=== PATIENT | male | born 1980 | race Hispanic/Latino ===

== ENCOUNTER → 2019-07-01 | Outpatient (CLI) | payer BC ==
[~2019-07-01] MED LIST: OMEPRAZOLE40 MG PO
--- NOTE | 2019-07-01 14:05 | Diagnostic Imaging Report ---
Right upper quadrant abdominal ultrasound, 07/01/2019. History: Right upper quadrant pain. Comparison: None available. Discussion: Transverse and longitudinal images of the right upper quadrant of the abdomen were obtained demonstrating a liver of normal size and echogenicity measuring 15 cm in length. There is no evidence of a focal hepatic mass. The portal vein is patent with hepatopetal flow and is within normal limits measuring 11 mm in diameter. The biliary tree is within normal limits with the common bile duct measuring 4 mm in diameter. The gallbladder contains echogenic sludge. No gallstones, pericholecystic fluid, or wall thickening is present. The sonographic Leung's sign was negative. The right kidney is normal in size and echogenicity without evidence of hydronephrosis, stones, or mass and measures 10.1 cm in length. The pancreatic body and proximal tail are visualized and are normal in appearance. The abdominal aorta is within normal limits. There is no evidence of free fluid. IMPRESSION: Gallbladder sludge. No evidence of gallstones or cholecystitis. Signed by: Donny Aponte MD on 07/01/2019 2:02 PM
== END ==
LOC: US 11:04
PROVIDERS: ATTEND Internal Medicine Gastroenterology
DX: R10.10 Upper abdominal pain, unspecified (principal)
CPT/HCPCS: 76705

== ENCOUNTER → 2019-07-06 | Day surgery (SDC) | payer BC ==
[~2019-07-06] MED LIST changes: +FENTANYL CITRATE/PF 100MCG/2 ML INJ ONE; +LIDOCAINE HCL 2% LOCAL INJ 5 ML SDV VIAL INJ ONE; +MIDAZOLAM HCL 2 MG/2 ML VIAL ONE; +PANTOPRAZOLE 40 MG 10ML VIAL ONE; +PROPOFOL IV EMULSION 10 MG/ML 50 ML VIAL ONE; +SODIUM CHLORIDE 0.9% 50ML 50 ML ONE
--- OUTSIDE RECORDS SUMMARY | 2019-07-06 11:57 | XMS REPORT ---
Author [facility] Address Unknown Phone Unavailable Care Team Providers Care Educational Speech Language Clinician Name Role Phone JOSE AHUMADA Unavailable Unavailable Problems This patient has no known problems. Allergies, Adverse Reactions, Alerts This patient has no known allergies or adverse reactions. Medications This patient has no known medications. Results Test Description Test Time Test Comments Text Results Atomic Results Result Comments US ABDOMEN LIMITED 2019-07-01 14:00:00 [place] [address] Patient Name: FLORENTINO MANZANARES MR #: [id number] : 1980 Age/Sex: 39/M Req #: [id number] [facility] Physician: Ordered by: JOSE AHUMADA MD Report #: [id number] Location: Room/Bed: Procedure: [id number] US/US ABDOMEN LIMITED Exam Date: 07/01/19 Exam Time: 1138 REPORT STATUS: Signed Right upper quadrant abdominal ultrasound, 07/01/2019. History: Right upper quadrant pain. Comparison: None available. Discussion: Transverse and longitudinal images of the right upper quadrant of the abdomen were obtained demonstrating a liver of normal size and echogenicity measuring 15 cm in length. There is no evidence of a focal hepatic mass. The portal vein is patent with hepatopetal flow and is within normal limits measu ring 11 mm in diameter. The biliary tree is within normal limits with the common bile duct measuring 4 mm in diameter. The gallbladder contains echogenic sludge. No gallstones, pericholecystic fluid, or wall thickening is present. The sonographic Leung's sign was negative. The right kidney is normal in size and echogenicity without evidence of hydronephrosis, stones, or mass and measures 10.1 cm in length. The pancreatic body and proximal tail are visualized and are normal in appearance. The abdominal aorta is within normal limits. There is no evidence of free fluid. IMPRESSION: Gallbladder sludge. No evidence of gallstones or cholecystitis. Signed by: Donny Gregorio MD on 07/01/2019 2:02 PM Dictated By: DONNY GREGORIO MD 140 Transcribed By: SUZANNE on 07/01/191401 COPY TO: JOSE AHUMADA MD
[2019-07-06 15:15] VITALS: BP 131/90
--- NOTE | 2019-07-06 22:48 | Operative Report ---
DATE OF PROCEDURE: 07/06/2019 SURGEON: Kevin Tong MD PROCEDURES: EGD with biopsies and esophageal dilatation. INDICATIONS FOR EGD: Upper abdominal pain, heartburn, bloating. MEDICATIONS: The patient was done under MAC, please see anesthesiologist's note. PROCEDURE IN DETAIL: With the patient in left lateral decubitus position, a flexible fiberoptic Olympus gastroscope was introduced into the esophagus under direct visualization without any difficulty. There was some patchy erythema noted in distal esophagus. There was a mild stricture noted at the GE junction that was dilated to size 52-[place] Henry. The scope was then advanced with ease into the stomach and mucosa overlying the antrum and the body revealed some patchy erythema and [id number] edema and biopsies were obtained and sent to stain for H pylori. Two minute polyps were partially excised with the cold biopsy forceps in the body of the stomach. The pylorus was of normal contour and shape and was intubated with ease and the scope was advanced all the way to the second portion of the duodenum. Biopsies were obtained from the proximal second portion and the duodenal bulb to rule out sprue. The scope was then withdrawn back into the stomach and retroflexed. Mucosa overlying the fundus and cardia appeared to be within normal limits. The scope was then straightened out and was subsequently withdrawn. The patient tolerated the procedure well. IMPRESSION: 1. Distal esophagitis, mild. 2. Esophagus dilated to size 52-[place] Henry. 3. Gastritis, biopsied. Biopsies sent to stain for Helicobacter pylori. 4. Gastric polyps, body, hyperplastic appearing, partially excised with cold biopsy forceps. 5. Rule out sprue. PLAN: Follow up histology. Initiate Protonix 40 mg 1 p.o. q.a.m. before meals. Kevin Tong MD [facility] [place] /[id number]
== END | disposition home or self-care (01) ==
LOC: OR 10:47
PROVIDERS: ATTEND Internal Medicine Gastroenterology
DX: R10.10 Upper abdominal pain, unspecified (principal); K20.9 Esophagitis, unspecified; R12 Heartburn; K29.70 Gastritis, unspecified, without bleeding; K31.7 Polyp of stomach and duodenum; K21.9 Gastro-esophageal reflux disease without esophagitis; Z68.30 Body mass index [BMI] 30.0-30.9, adult; R03.0 Elevated blood-pressure reading, without diagnosis of hypertension
CPT/HCPCS: 43239; 43450; C9113; J2001; J2250; J2704; J3010